=== PATIENT | female | born 1975 | race Caucasian/White ===

== ENCOUNTER 2016-06-29 17:32 | Emergency (ER) | payer OTHER ==
[~2016-06-29] VITALS: Ht 167.6 cm; Wt 79.1 kg
[~2016-06-29 17:32] MED LIST: ALBUAER3 INH; CELE40TA PO; CLON1 PO; DOXY100C PO; GABA600T PO; TRAM50TA PO; VIST25CA PO; ZYPR5TAB PO
[2016-06-29 17:33] VITALS: BP 119/56; PULSE 70; RESP 16; TEMP 98.2; O2SAT 97
--- NOTE | 2016-06-29 18:15 | PD ---
HPI . dental pain/ tooth falling out and infection Chief Complaint: Oral / Dental Pain or Problem Time Seen by Provider: 18:14 Travel History International Travel<30 days: No Contact w/Intl Traveler<30days: No Traveled to known affect area: No History of Present Illness HPI 41-year-old female with anxiety and depression here with complaints of dental pain and teeth falling out. Patient states she was seen by her dentist and told that she needs to come to the emergency room for antibiotics and pain medication. She says she was told she needs to do this before they would do any further workup and/or treatment. She was told she had gingivitis and would need all of her teeth extracted and have dentures placed. She thinks she had a fever, but never checked her temperature. She admits to pain with eating. Of note she is allergic to aspirin and ibuprofen as well as penicillin. PFSH Past Medical History Anxiety: Yes Depression: Yes ?: Not Social History Alcohol Use: Yes Tobacco Use: Yes Substance Use: No Allergies-Medications (Allergen,Severity, Reaction): Coded Allergies: Advil (Verified Allergy, Severe, 06/29/16) Aspirin (Verified Allergy, Severe, 06/29/16) Ibuprofen (Verified Allergy, Severe, 06/29/16) Latex (Verified Allergy, Severe, 06/29/16) Penicillin (Verified Allergy, Severe, 06/29/16) Reported Meds & Prescriptions Reported Meds & Active Scripts Active Magic Mouthwash Adult Liq (Multi-Ingredient Mouthwash/Gargle) 120 Ml Susp 5 Ml SWISH-SWAL DIRECTED every 2 hrs as needed Each 5mL contains: Nystatin 200,000units, Diphenhydramine 4.25mg, Viscous Lidocaine 10mg, Pan syrup 0.8 mL Tylenol (Acetaminophen) 325 Mg Cap 650 Mg PO Q6H PRN Clindamycin (Clindamycin HCl) 300 Mg Cap 300 Mg PO TID Vistaril (Hydroxyzine Pamoate) 25 Mg Cap 25 Mg PO TID PRN Doxycycline Hyclate 100 Mg Cap 100 Mg PO BID Reported Proair Hfa 8.5 GM Inh (Albuterol Sulfate) 90 Mcg/Act Aer 1 Puff INH Q4H PRN 108 mcg/actuation Klonopin (Clonazepam) 1 Mg Tab 1 Mg PO BID Zyprexa (Olanzapine) 5 Mg Tab 5 Mg PO HS Celexa (Citalopram Hydrobromide) 40 Mg Tab 40 Mg PO DAILY Gabapentin 600 Mg Tab 600 Mg PO BID Tramadol (Tramadol HCl) 50 Mg Tab 50 Mg PO Q8H PRN Review of Systems General / Constitutional: Positive: Fever, Chills Eyes: No: Visual changes HENT: Positive: Gingival Bleeding, Dental Difficulties, No: Headaches Cardiovascular: No: Chest Pain or Discomfort Respiratory: No: Shortness of Breath Gastrointestinal: No: Abdominal Pain Genitourinary: No: Dysuria Musculoskeletal: No: Pain Skin: No Rash Neurologic: No: Weakness Psychiatric: No: Depression Endocrine: No: Polydipsia Hematologic/Lymphatic: No: Easy Bruising Physical Exam Narrative GENERAL: AAO x 3, no acute distress, Well-nourished, well-developed patient. SKIN: Warm and dry. No visible rashes or bruising. HEAD: Normocephalic and atraumatic. EYES: No scleral icterus. No injection or drainage. ENT: No nasal drainage noted. Mucous membranes pink. Airway patent. Multiple decaying teeth scattered on upper and lower mouth. + infected gums, without visible abscess formation. Throat is normal. NECK: Supple, trachea midline. No JVD. NO adenopathy. CARDIOVASCULAR: Regular rate and rhythm without murmurs, gallops, or rubs. RESPIRATORY: Breath sounds equal bilaterally. No accessory muscle use. No rhonchi or rales. GASTROINTESTINAL: Abdomen soft, non-tender, nondistended. EXTREMITIES: No cyanosis or edema. BACK: Nontender without obvious deformity. No CVA tenderness. PSYCH: AAO x 3, normal affect. Data Data Last Documented VS Vital Signs Date Time Temp Pulse Resp B/P Pulse Ox O2 Delivery O2 Flow Rate FiO2 06/29/16 17:33 98.2 70 16 119/56 97 MDM Medical Decision Making Medical Screen Exam Complete: Yes Emergency Medical Condition: Yes Medical Record Reviewed: Yes Differential Diagnosis gingivitis, dental abscess, dental caries, Narrative Course 41-year-old female with anxiety and depression here with complaints of dental pain and teeth falling out. Patient states she was seen by her dentist and told that she needs to come to the emergency room for antibiotics and pain medication. She says she was told she needs to do this before they would do any further workup and/or treatment. She was told she had gingivitis and would need all of her teeth extracted and have dentures placed. She thinks she had a fever, but never checked her temperature. She admits to pain with eating. Of note she is allergic to aspirin and ibuprofen as well as penicillin. Patient seen and examined. Has gingivitis and multiple decaying teeth, dental caries etc. Advised that I will cover her with antibiotics and provide Magic Mouthwash and Tylenol for pain control to allow her to eat. She has been advised to follow up with her dentist as soon as possible to have her teeth extracted as this will likely happen again if left untreated. Patient verbalized understanding of instructions, questions were answered, and thanked me for their care. I advised them if their condition worsens, please return to the nearest emergency room for further care. Diagnosis Primary Impression: Dental caries Additional Impressions: Gingivitis Infected tooth Patient Instructions: Dental Caries (ED), General Instructions, Gingivitis (ED) Additional Instructions: Take all medications as prescribed. Clindamycin 300 mg 3 times a day. Use Magic mouthwash as prescribed. You can swish and swallow this. Use tylenol as needed for pain. Med/Other Pt SpecificInfo: Prescription(s) given Scripts Lrbttaqg-Gtmyqegadccsmky-Quuynfrhy Liq (Magic Mouthwash Adult Liq)120 Ml Susp5 Ml SWISH-SWAL DIRECTED #120 ML Ref 1 every 2 hrs as needed Each 5mL contains: Nystatin 200,000units, Diphenhydramine 4.25mg, Viscous Lidocaine 10mg, Pan syrup 0.8 mL Prov:Naty Dickey 06/29/16 Acetaminophen (Tylenol)325 Mg [id number] Mg PO Q6H PRN (PAIN SCALE 4 TO 10) #60 CAP Ref 0 Prov:Naty Dickey 06/29/16 Clindamycin 300 Mg [id number] Mg PO TID #21 CAP Ref 0 Prov:Naty Dickey 06/29/16 Disposition: 01 DISCHARGE HOME Condition: Stable Naty Dickey Jun 29, 2016 18:15
[2016-06-29] MEDS ORDERED: ACET1CAP18 PO (18:25)
[2016-06-29] MEDS ORDERED: CLIN1CAP6 PO (18:25)
[2016-06-29] MEDS ORDERED: MAGICADU2 SWISH-SWAL ×2 (18:25→18:28)
== END 2016-06-29 18:47 | disposition home or self-care (01) ==
LOC: NEPB 17:32
DX: K02.9 Dental caries, unspecified (principal); K05.10 Chronic gingivitis, plaque induced; K04.7 Periapical abscess without sinus; Z72.0 Tobacco use
CPT/HCPCS: 99282